=== PATIENT | male | born 1960 ===

== ENCOUNTER 2018-05-03 18:29 | Emergency (ER) | payer BC, OTHER ==
[2018-05-03] MEDS ORDERED: Tetan/Diph/Pertus SYR(Tdap)* 0.5 ML SYR(BOOSTRIX) use SYR IM ONE (19:24)
--- NOTE | 2018-05-03 19:24 | ED ---
Laceration/Wound HPI - HPI Summary HPI Summary: 58-year-old male presents with laceration to right index finger today. He states that he was dropping a knife and went to catch it and cut his distal phalanx of his right index finger. He denies any numbness or tingling. He unsure when his last tetanus is. Area continues to bleed. Has full range of motion of his finger. He is right-handed. He is currently retired. - History of Current Complaint Stated Complaint: RT FINGER LAC Time Seen by Provider: 05/03/18 18:37 Pain Intensity: 3 - Allergy/Home Medications Allergies/Adverse Reactions: Allergies Allergy/AdvReac Type Severity Reaction Status Date / Time No Known Allergies Allergy Unverified 09/29/13 15:48 PMH/Surg Hx/FS Hx/Imm Hx Endocrine/Hematology History: Denies: Hx Diabetes, Hx Thyroid Disease Cardiovascular History: Reports: Hx Hypercholesterolemia Denies: Hx Hypertension, Hx Peripheral Vascular Disease Musculoskeletal History: Denies: Hx Arthritis, Hx Rheumatoid Arthritis, Hx Osteoporosis Sensory History: Denies: Hx Cataracts, Hx Contacts or Glasses, Hx Glaucoma Opthamlomology History: Denies: Hx Cataracts, Hx Contacts or Glasses, Hx Glaucoma Neurological History: Denies: Hx Headaches, Hx Seizures, Hx Transient Ischemic Attacks (TIA) Psychiatric History: Denies: Hx Anxiety, Hx Depression Infectious Disease History: No Infectious Disease History: Denies: Traveled Outside the [place] in Last 30 Days - Family History Known Family History: Positive: Hypertension - Social History Alcohol Use: None Substance Use Type: Reports: None Smoking Status (MU): Never Smoked Tobacco Review of Systems Negative: Fever Negative: Chest Pain Negative: Shortness Of Breath Positive: Other - laceration right index finger All Other Systems Reviewed And Are Negative: Yes Physical Exam Triage Information Reviewed: Yes Vital Signs On Initial Exam: Initial Vitals Temp Pulse Resp BP Pulse Ox 97.0 F 70 18 166/108 96 05/03/18 18:31 05/03/18 18:31 05/03/18 18:31 05/03/18 18:31 05/03/18 18:31 Vital Signs Reviewed: Yes Appearance: Positive: Well-Appearing Skin: Positive: Warm, Dry, Other - 2cm by 1/4cm right index finger at distal phalanx on palmar aspect Head/Face: Positive: Normal Head/Face Inspection Eyes: Positive: Normal, Conjunctiva Clear Respiratory/Lung Sounds: Positive: Clear to Auscultation, Breath Sounds Present Cardiovascular: Positive: Normal, RRR Musculoskeletal: Positive: Strength/ROM Intact - right index finger, Other - good pulses, capillary refill<2 secs, Neurological: Positive: Normal Psychiatric: Positive: Normal Procedures - Laceration/Wound Repair 1 Location: Other - right index finger Description: Linear Anesthesia: Digital, 1.0% Length, Depth and Shape: 2cm by 1/2cm Irrigated w/ Saline (ccs): 300 Laceration/Wound Explored: no foreign body removed Closure: Single Layer Suture Type: Prolene - 4-0 Number of Sutures: 5 Layer Closure?: No Sterile Dressing Applied?: Yes - telfa, gauze, coband Diagnostics - Vital Signs Vital Signs Temp Pulse Resp BP Pulse Ox 05/03/18 18:31 97.0 F 70 18 166/108 96 - Laboratory Lab Statement: Any lab studies that have been ordered have been reviewed, and results considered in the medical decision making process. Laceration Repair Course/Dx - Course Course Of Treatment: 58-year-old male presents with laceration to right index finger today. He states that he was dropping a knife and went to catch it and cut his distal phalanx of his right index finger. He denies any numbness or tingling. He unsure when his last tetanus is. Area continues to bleed. Has full range of motion of his finger. He is right-handed. He is currently retired. On exam has 2cm by half centimeter laceration of the distal phalanx of right index finger. cleaned area and placed 5 sutures. warned of signs to return to ED for. patient understand and agrees with plan. - Differential Dx Differental Diagnoses: Abrasion, Avulsion, Laceration - Clinical Impression Provider Diagnoses: Laceration of right index finger Discharge - Sign-Out/Discharge Documenting (check all that apply): Discharge/Admit/Transfer - Discharge Plan Condition: Good Disposition: HOME Patient Education Materials: Care For Your Stitches (ED) Referrals: Suresh Ramos MD [Primary Care Provider] - Additional Instructions: change dressing once a day Keep area clean and dry for 24 hours, after such do not soak area Take Tylenol or ibuprofen for pain every 6 hours Return to ED or primary for suture removal in - days Return to ED if develop signs of infection such as fever, spreading redness, or pus formation - Billing Disposition and Condition Condition: GOOD Disposition: Home
[2018-05-03 19:38] VITALS: BP 166/98
== END 2018-05-03 19:38 | disposition home or self-care (01) ==
LOC: ED 18:29
DX: S61.210A Laceration without foreign body of right index finger without damage to nail, initial encounter (principal); W26.0XXA Contact with knife, initial encounter; Y92.9 Unspecified place or not applicable; Z23 Encounter for immunization
CPT/HCPCS: 12001; 90471; 90715; 99282